=== PATIENT | male | born 1995 | race African-American/Black ===

== ENCOUNTER 2019-04-03 09:28 | Emergency (ER) | payer MEDICAID, OTHER ==
[2019-04-03 10:27] VITALS: BP 139/83
--- NOTE | 2019-04-03 11:07 | UC ---
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 No fever / chills. Noted sore throat on triage, denies during phys exam. No sob / cp / cough. No diarrhea. + constipation, last bm x 2 days, ? darker stool. No urinary issues. Does drink alcohol, luis m in evening / night. No rash. No hx prior pain. Fam hx + dm aunt. Abd pain worse with eating. Pain worse lying down on his back. - History of Current Complaint Chief Complaint: UCAbdominalPain Stated Complaint: SORE THROAT Time Seen by Provider: 04/03/19 10:45 Hx Obtained From: Patient Pain Intensity: 9 - Allergy/Home Medications Allergies/Adverse Reactions: Allergies Allergy/AdvReac Type Severity Reaction Status Date / Time shellfish derived Allergy anaph Verified 04/03/19 10:27 PMH/Surg Hx/FS Hx/Imm Hx Previously Healthy: Yes - Surgical History Surgical History: None - Family History Known Family History: Positive: Other - see hpi - Social History Alcohol Use: Weekly Substance Use Type: Marijuana Smoking Status (MU): Heavy Every Day Tobacco Smoker Review of Systems All Other Systems Reviewed And Are Negative: Yes Constitutional: Positive: Negative Skin: Positive: Negative Eyes: Positive: Negative ENT: Positive: Negative Respiratory: Positive: Negative Cardiovascular: Positive: Negative Gastrointestinal: Positive: Other - see hpi Genitourinary: Positive: Negative Motor: Positive: Negative Neurovascular: Positive: Negative Musculoskeletal: Positive: Negative Neurological: Positive: Negative Psychological: Positive: Negative Is Patient Immunocompromised?: No Physical Exam Triage Information Reviewed: Yes Appearance: Well-Appearing, Well-Nourished Vital Signs: Initial Vital Signs Temp 98 F 04/03/19 10:24 Pulse 85 04/03/19 10:24 Resp 16 04/03/19 10:24 BP 139/83 04/03/19 10:24 Pulse Ox 100 04/03/19 10:24 Vital Signs Reviewed: Yes Eye Exam: Normal ENT: Positive: Pharyngeal erythema - mlid post pharyngeal redness, no sores / exudates. Uvula midline. Neck exam: Normal Respiratory Exam: Normal Respiratory: Positive: Chest non-tender, Lungs clear, Normal breath sounds, No respiratory distress, No accessory muscle use Cardiovascular Exam: Normal Cardiovascular: Positive: RRR, Pulses Normal, Brisk Capillary Refill Abdominal Exam: Other - + midepig tenderness. No r/g. No hsm appreciated. No mary hsm. No cvat. + nabs. abd soft, nondistended. No rebound / guarding. Course/Dx - Course Course Of Treatment: Reviewed coa / tx plan. New to the [place] area, will obtain pcp, [facility] [place]. ; Blood work today (see orders). Advised to minimize alcohol, none is best. Declines assistance for alcohold reduction. Advised to go to the ED for worse or new problems. Questions as posed by pt and public service director answered to the best of my ability. - Diagnoses Provider Diagnosis: Gastritis, Abdominal pain Discharge ED - Sign-Out/Discharge Documenting (check all that apply): Patient Departure All imaging exams completed and their final reports reviewed: No Studies - Discharge Plan Condition: Stable Disposition: HOME Prescriptions: Omeprazole 40 mg PO DAILY #30 capsule. Patient Education Materials: Gastritis (ED), Abdominal Pain (ED), Alcohol Dependence (ED) Referrals: [facility] [[place]] No Primary Care Phys,NOPCP [Primary Care Provider] - Additional Instructions: Hydrate. Consider over the counter MAALOX (generic ok) as needed for pain, luis m at night. Do NOT use more than the recommended dosage on the bottle. Very important to follow up with a primary care provider. Please go to the Emergency Department for worse or new problems. Please try to avoid alcohol, especially at night before lying down. Blood work in the lab. You will be notified if problems requiring change in management. - Billing Disposition and Condition Condition: STABLE Disposition: Home
[2019-04-03 16:28] LABS: ABS Eosinophils 0.2 10^3/ul (0-0.6); ABS Lymphocytes 1.6 10^3/ul (1.0-4.8); ABS Monocytes 0.8 10^3/ul (0-0.8); ABS Neutrophils 2.1 10^3/ul (1.5-7.7); Eosinophil % 3.3 %; Hematocrit 49 % (42-52); Lymphocyte % 35.4 %; Mean Corpuscular HGB Conc 33 g/dL (31-36); Mean Corpuscular Hemoglobin 27 pg (27-31); Mean Corpuscular Volume 81 fL (80-94); Mean Platelet Volume 10.4 fL (7.4-10.4); Nucleated Red Blood Cells % 0.2; Platelet Count 198 10^3/uL (150-450); Red Blood Count 6.03 10^6 /uL (4.18-5.48); Red Cell Distribution Width 14 % (10-15); White Blood Count 4.7 10^3/uL (3.5-10.8)
[2019-04-03 16:56] LABS: Albumin 4.6 g/dL (3.2-5.2); Calcium 9.8 mg/dL (8.6-10.3); Potassium 3.9 mmol/L (3.5-5.0); Total Bilirubin 0.6 mg/dL (0.2-1.0)
[2019-04-03 17:02] LABS: Albumin/Globulin Ratio 1.8 (1-3); BUN/Creatinine Ratio 8.8 (8-20); EGFR Non-African American 77.6 (>60); Globulin 2.6 g/dL (2-4); Total Protein 7.2 g/dL (6.4-8.9)
== END 2019-04-03 11:37 | disposition home or self-care (01) ==
LOC: UCEAST 09:28
DX: K29.70 Gastritis, unspecified, without bleeding (principal); R10.9 Unspecified abdominal pain; F17.290 Nicotine dependence, other tobacco product, uncomplicated; Z91.013 Allergy to seafood
CPT/HCPCS: 36415; 80053; 83690; 85025; 99212; G0463